=== PATIENT | female | born 1980 | race Caucasian/White ===

== ENCOUNTER 2019-01-21 18:44 | Emergency (ER) | payer OTHER ==
[2019-01-21 19:00] VITALS: BP 129/81; PULSE 83; TEMP 98.1; BMI 25.3
--- NOTE | 2019-01-21 20:35 | PDOC ---
History of Present Illness - General Chief Complaint: Shortness of Breath Stated Complaint: CHEST PAIN/COUGH Time Seen by Provider: 01/21/19 20:35 History Source: Patient - History of Present Illness Initial Comments: 01/21/19 23:07 [id number] complaining of cough and chest congestion. Patient reports that she was diagnosed with the flu and completed Tamiflu. Patient does not have any fever or chills reports wheezing and cough. Patient reports that she took him albuterol nebulizer that was prescribed for her with some relief. Past History - Past Medical History Allergies/Adverse Reactions: Allergies Allergy/AdvReac Type Severity Reaction Status Date / Time No Known Allergies Allergy Verified 01/21/19 18:56 Home Medications: Ambulatory Orders Albuterol Sulfate Inhaler - [Ventolin HFA Inhaler -] 1 - 2 inh PO Q4H PRN #1 inhaler 01/21/19 Benzonatate [Tessalon Pearls -] 100 mg PO TID PRN #21 capsule 01/21/19 predniSONE [Deltasone -] 40 mg PO DAILY #10 tablet 01/21/19 - Suicide/Smoking/Psychosocial Hx Smoking History: Never smoked Hx Alcohol Use: No Drug/Substance Use Hx: No Review of Systems - Review of Systems Able to Perform ROS?: Yes Is the patient limited Welsh proficient: No Constitutional: No: Symptoms Reported, See HPI, Chills, Diaphoresis, Fever, Loss of Appetite, Malaise, Night Sweats, Weakness, Weight Stable, Unintentional Wgt. Loss, Unexplained wgt Loss, Other HEENTM: No: Symptoms Reported, See HPI, Eye Pain, Blurred Vision, Tearing, Recent change in vision, Double Vision, Cataracts, Ear Pain, Ocular Prothesis, Ear Discharge, Nose Pain, Nose Congestion, Tinnitus, Nose Bleeding, Hearing Loss , Throat Pain, Throat Swelling, Mouth Pain, Dental Problems, Difficulty Swallowing, Mouth Swelling, Other Respiratory: Yes: Cough, Wheezing. No: Symptoms reported, See HPI, Orthopnea, Shortness of Breath, SOB with Exertion, SOB at Rest, Stridor, Productive cough, Hemoptysis, Other Cardiac (ROS): No: Symptoms Reported, See HPI, Chest Pain, Edema, Irregular Heart Rate, Lightheadedness, Palpitations, Syncope, Chest Tightness, Other *Physical Exam - Vital Signs Last Vital Signs Temp Pulse Resp BP Pulse Ox 98.1 F 83 20 129/81 99 01/21/19 18:56 01/21/19 18:56 01/21/19 18:56 01/21/19 18:56 01/21/19 18:56 - Physical Exam General Appearance: Yes: Appropriately Dressed HEENT: positive: Normal ENT Inspection Respiratory/Chest: positive: Lungs Clear, Normal Breath Sounds. negative: Chest Tender Cardiovascular: positive: Regular Rhythm, Regular Rate Gastrointestinal/Abdominal: positive: Normal Bowel Sounds, Soft Progress Note - Progress Note Progress Note: A: reactive airway disease P: chest xray: negative official read pending prednisone duoneb Medical Decision Making - Medical Decision Making reports feeling better. will d/. chome *DC/Admit/Observation/Transfer Diagnosis at time of Disposition: Reactive airway disease Qualifiers: Asthma severity: mild Asthma persistence: intermittent Asthma complication type : uncomplicated Qualified Code(s): J45.20 - Mild intermittent asthma, uncomplicated - Discharge Dispostion Disposition: HOME - Prescriptions Prescriptions: Albuterol Sulfate Inhaler - [Ventolin HFA Inhaler -] 1 - 2 inh PO Q4H PRN #1 inhaler PRN Reason: Cough Benzonatate [Tessalon Pearls -] 100 mg PO TID PRN #21 capsule PRN Reason: Cough predniSONE [Deltasone -] 40 mg PO DAILY #10 tablet - Referrals - Patient Instructions Printed Discharge Instructions: DI for Reactive Airway Disease-Adult Additional Instructions: Use albuterol every 4-6 hours as he needed for cough Use Tessalon Perle as prescribed as needed for cough Start taking prednisone tomorrow in the evening for the next 4 days. Follow-up with your doctor in 1-2 days. Drink plenty of fluids drink warm liquids and teas. - Post Discharge Activity Forms/Work/School Notes: Back to Work
--- NOTE | 2019-01-21 20:43 | PDOC ---
*Physical Exam - Vital Signs Last Vital Signs Temp Pulse Resp BP Pulse Ox 98.1 F 83 20 129/81 99 01/21/19 18:56 01/21/19 18:56 01/21/19 18:56 01/21/19 18:56 01/21/19 18:56 Medical Decision Making - Medical Decision Making 01/21/19 20:38 Patient seen by the advanced practice provider under my direct supervision. Ancillary testing reviewed as necessary. I agree with plan as outlined by the advanced practice provider. *DC/Admit/Observation/Transfer Diagnosis at time of Disposition: Reactive airway disease Qualifiers: Asthma severity: mild Asthma persistence: intermittent Asthma complication type : uncomplicated Qualified Code(s): J45.20 - Mild intermittent asthma, uncomplicated - Discharge Dispostion Disposition: HOME - Prescriptions Prescriptions: Albuterol Sulfate Inhaler - [Ventolin HFA Inhaler -] 1 - 2 inh PO Q4H PRN #1 inhaler PRN Reason: Cough Benzonatate [Tessalon Pearls -] 100 mg PO TID PRN #21 capsule PRN Reason: Cough predniSONE [Deltasone -] 40 mg PO DAILY #10 tablet - Referrals - Patient Instructions Printed Discharge Instructions: DI for Reactive Airway Disease-Adult - Post Discharge Activity
[2019-01-21] MEDS: ALBUTEROL SO4 2.5/IPRATROPIUM 0.5 INH SOL 3 ML VIAL.NEB. NEB SCH ×2 (21:00→21:12)
[2019-01-21] MEDS ORDERED: ALBUTEROL SO4 2.5/IPRATROPIUM 0.5 INH SOL 3 ML VIAL.NEB. NEB ONE (21:07)
[2019-01-21] MEDS ORDERED: predniSONE 20 MG TABLET (UD) PO ONE (23:53)
[2019-01-22] MEDS ORDERED: predniSONE 20 MG TABLET (UD) ONE (00:01)
--- NOTE | 2019-01-22 09:35 | EKG ---
Test Reason : Blood Pressure : / mmHG Vent. Rate : 079 BPM Atrial Rate : 079 BPM P-R Int : 154 ms QRS Dur : 088 ms QT Int : 360 ms P-R-T Axes : 065 044 031 degrees QTc Int : 412 ms NORMAL SINUS RHYTHM POSSIBLE LEFT ATRIAL ENLARGEMENT BORDERLINE ECG NO PREVIOUS ECGS AVAILABLE Confirmed by JOSE WILHELM, ALY ([id number]) on 01/22/2019 9:34:44 AM Referred By: Confirmed By:ALY GARCIA MD
== END 2019-01-22 00:39 | disposition home or self-care (01) ==
LOC: JER 18:44
PROC: 3E0F7GC Introduction of Other Therapeutic Substance into Respiratory Tract, Via Natural or Artificial Opening (ICD-10-PCS; principal; 2019-01-21)
DX: J45.20 Mild intermittent asthma, uncomplicated (principal)
CPT/HCPCS: 71046-TC-FY; 84703; 93005; 93010; 94640; 99282-25